=== PATIENT | female | born 1960 | race Caucasian/White ===

== ENCOUNTER 2018-03-10 04:05 | Emergency (ER) | payer SELFPAY ==
[2018-03-10] MEDS ORDERED: Ondansetron PF 4 MG/2 ML Vial ONE ×2 (04:35→06:32)
[2018-03-10] MEDS ORDERED: Morphine 4 MG/ML VIAL ONE ×2 (04:35→06:29)
[2018-03-10 04:58] LABS: #Basophils 0.1 thou/uL (0.0-0.2); #Eosinphils 0.1 thou/uL (0.0-0.7); #Lymphocytes 1.7 thou/uL (1.20-3.40); #Monocytes 0.8 thou/uL (0.11-0.59); #Neutrophils 8.2 thou/uL (1.40-6.50); %Basophils 0.7 % (0.0-1.0); %Eosinophils 1.1 % (0.0-10.0); %Lymphocytes 15.7 % (21.0-51.0); %Monocytes 7.2 % (0.0-10.0); %Neutrophils 75.4 % (42.0-75.0); Hemoglobin 14.8 g/dL (12.0-16.0); Mean Corpuscular Hemoglobin 29.6 pg (27.0-31.0); Mean Corpuscular Volume 89.6 fL (78.0-98.0); Mean Platelet Volume 8.3 fL (7.4-10.4); Platelet Count 297 thou/uL (130-400); RBC Distribution Width 12.2 % (11.5-14.5); Red Blood Cell (RBC) Count 4.99 mill/uL (4.20-5.40); White Blood Cell (WBC) Count 10.9 thou/uL (4.8-10.8)
[2018-03-10] MEDS ORDERED: Ketorolac Tromethamine 30 MG/ML VIAL ONE (05:13)
[2018-03-10 05:20] LABS: BHCG - Serum Negative (NEGATIVE); Pregs Control Background? CLEAR/WHITE (CLR/WHITE); Pregs Control Bar Appear? YES (CONTROL BAR)
[2018-03-10 05:22] LABS: ALT (SGPT) 12 U/L (8-55); AST (SGOT) 14 U/L (5-34); Albumin 4.2 g/dL (3.5-5.0); Alkaline Phosphatase 97 U/L (40-150); Anion Gap 11 mmol/L (10-20); BUN (Urea Nitrogen) 17 mg/dL (9.8-20.1); Bilirubin, Total 0.6 mg/dL (0.2-1.2); Calc. Creatinine Clearance 0 mL/min (70-130); Calcium 9.2 mg/dL (7.8-10.44); Carbon Dioxide 26 mmol/L (22-29); Chloride 104 mmol/L (98-107); Estimated GFR-MDRD 65; Globulin 3.9 g/dL (2.4-3.5); Glucose 114 mg/dL (70-105); Lipase 28 U/L (8-78); Potassium 3.8 mmol/L (3.5-5.1); Protein, Total 8.1 g/dL (6.0-8.3); Sodium 137 mmol/L (136-145)
[2018-03-10 06:33] LABS: Bilirubin Negative (Negative); Blood, Urine Negative (Negative); Clarity CLEAR (Clear); Glucose, Urine (Dipstick) Negative (Negative); Leukocyte Negative (Negative); Nitrite Negative (Negative); Protein, Urine (Dipstick) Negative (Neg-Trace); Urobilinogen 0.2 mg/dL (0.2-1.0); pH, Urine 7.5 (5.0-9.0)
[2018-03-10 06:43] LABS: Specific Gravity, Urine Greater than 1.060 (1.002-1.036)
--- NOTE | 2018-03-10 08:03 | CT ---
PRELIMINARY REPORT/[facility]/EMERGENTY AFTER-HOURS PROCEDURE CT Abdomen and Pelvis With Intravenous Contrast EXAM DATE/TIME: 03/10/2018 4:55 AM CLINICAL HISTORY: 57 years old, female; Pain; Abdominal pain; Localized; Lower; Prior surgery; Patient HX: Er 3; Abdomi nal pain, tender, to the left lower quadrant, to the right lower quadrant, associated with nausea. Madsen rgical history of tubal ligation. TECHNIQUE: Axial computed tomography images of the abdomen and pelvis with intravenous contrast. Coronal reformatted images were created and reviewed. COMPARISON: No relevant prior studies available. FINDINGS: Lower thorax: There is a 3 mm RIGHT lower lobe pulmonary nodule. There is a 5 mm LEFT lower lobe subp leural nodule. There is a 3 mm LEFT lower lobe pulmonary nodule. ABDOMEN: Liver: There are no focal liver lesions identified. Gallbladder and bile ducts: The gallbladder is normal. There is no evidence of biliary ductal dilatio n. Pancreas: The pancreas appears normal. No ductal dilatation. Spleen: The spleen is normal. Adrenals: The adrenal glands are normal. Kidneys and ureters: The kidneys appear normal. No hydronephrosis. Stomach and bowel: The stomach is normal. The duodenum is unremarkable. Moderate diverticulosis is pr esent in the sigmoid and descending colon. Appendix: A normal appendix is identified. PELVIS: Bladder: The bladder is normal. Reproductive: The uterus is normal. There is a LEFT ovarian 4.8 cm cyst, incompletely evaluated with CT. ABDOMEN and PELVIS: Intraperitoneal space: There is a small amount of free pelvic fluid present. Bones/joints: No acute fracture. No dislocation. Soft tissues: There is a nonspecific RIGHT upper quadrant anterior subcutaneous soft tissue nodule me asuring 13 mm. Vasculature: The vasculature demonstrates diffuse mild atherosclerotic calcification. Lymph nodes: Normal. No enlarged lymph nodes. IMPRESSION: 1. There is a LEFT ovarian 4.8 cm cyst, incompletely evaluated with CT. Pelvic ultrasound is advised for further characterization. 2. Numerous pulmonary nodules measuring up to 5 mm.For low risk patients, no routine follow-up is nee ded. For high risk patients, optional CT at 12 months is recommended. Thank you for allowing us to participate in the care of your patient. Dictated and Authenticated by: Antoni Cortez MD 03/10/2018 5:38 AM Central Time ([place] & [place]) FINAL REPORT CT ABDOMEN WITH CONTRAST CT PELVIS WITH CONTRAST: Date: 03/10/18 HISTORY: Pain. Left lower quadrant pain. Right lower quadrant pain. Tenderness. FINDINGS/IMPRESSION: This report is in agreement with the preliminary report by [facility]. There is a probable left ovarian cys t. Cyst is somewhat atypical for a patient of this age. Nonemergent [employer]EMAN consultation is recommended. There are nonspecific nodules in the right lower lobe. Based on risk stratification, CT can be perfor med in 12 months. Not reported on the preliminary report by [facility] is a soft tissue density mass in the right lower quadr ant, which is just superficial to the rectus muscles, measuring 1.2 x 2.0 cm. Evaluation is incomplet e. Targeted ultrasound is recommended. CODE T. POS: [place]
--- NOTE | 2018-03-10 09:46 | ULT ---
PELVIC ULTRASOUND: Date: 03/10/18 HISTORY: Left ovarian cyst noted on recent CT. COMPARISON: None. TECHNIQUE: Transabdominal imaging of the pelvis is performed. Ovaries are interrogated with Carter scale, color fl ow, Doppler imaging, and spectral waveform analysis. FINDINGS: Uterus is identified, without myometrial masses. Uterus measures 7.1 x 3.4 x 5.2 cm. Limited evaluati on of the endometrium which appears to be 0.5 cm in diameter. Right ovary has a normal echotexture, measuring 2.3 x 1.7 x 2.0 cm. Anechoic focus in the left ovary measuring 4.1 x 5.9 x 2.9 cm. Overall, left ovary measures 4.6 x 6.0 x 4.2 cm. No free fluid. OVARIAN DOPPLER: Vascular flow to both ovaries. IMPRESSION: Left ovarian cyst. Nonemergent AGENCY RECRUITER consultation is recommended. Results of the CT abdomen and pelvis were discussed with Dr. Avendaño. Specifically, the soft tissue mass in the right upper quadrant subcutaneous soft tissues was discussed 03/10/2018 at 9:29 a.m. CODE CR POS: [place]
[2018-03-10] MEDS ORDERED: Iopamidol 370 76% 100 ML VIAL ONE (13:37)
== END 2018-03-10 09:48 | disposition home or self-care (01) ==
LOC: ERS 04:05
DX: N83.202 Unspecified ovarian cyst, left side (principal); R91.1 Solitary pulmonary nodule; Z71.6 Tobacco abuse counseling; E03.9 Hypothyroidism, unspecified; I10 Essential (primary) hypertension; F41.9 Anxiety disorder, unspecified; F17.210 Nicotine dependence, cigarettes, uncomplicated
CPT/HCPCS: 74177; 76856; 80053; 81003; 83690; 84703; 85025; 93976; 96374; 96375; 96376; 99406; J1885; J2270; J2405

== ENCOUNTER 2019-11-10 15:31 | Outpatient (CLI) | payer BC ==
--- NOTE | 2019-11-10 15:57 | MMO ---
Bilateral MAMMO Bilat Screen [facility]. CLINICAL HISTORY: Patient is 59 years old and is seen for screening. The patient has no family history of breast cancer. The patient has no personal history of cancer. VIEWS: The views performed were: bilateral craniocaudal with tomosynthesis and bilateral mediolateral oblique with tomosynthesis. FILMS COMPARED: The present examination has been compared to prior imaging studies performed at [facility] on 04/12/2015, 04/30/2016, 05/01/2017 and 07/29/2018. This study has been interpreted with the assistance of computer-aided detection. MAMMOGRAM FINDINGS: There are scattered fibroglandular densities. Finding 1: There are stable benign appearing calcifications seen in both breasts. Finding 2: There are stable masses seen in both breasts. There are no suspicious masses, suspicious calcifications, or new areas of architectural distortion. IMPRESSION: THERE IS NO MAMMOGRAPHIC EVIDENCE OF MALIGNANCY. A ROUTINE FOLLOW-UP MAMMOGRAM IN 1 YEAR IS RECOMMENDED. THE RESULTS OF THIS EXAM WERE SENT TO THE PATIENT. ACR BI-RADS Category 2 - Benign finding MAMMOGRAPHY NOTE: 1. A negative mammogram report should not delay a biopsy if a dominant of clinically suspicious mass is present. 2. Approximately 10% to 15% of breast cancers are not detected by mammography. 3. Adenosis and dense breasts may obscure an underlying neoplasm. Reported by: CICI HALE MD Electonically Signed: [id number]
== END 2019-11-10 15:32 | disposition home or self-care (01) ==
LOC: BICMAMMO 15:31
PROVIDERS: ATTEND Physician Assistant
DX: Z12.31 Encounter for screening mammogram for malignant neoplasm of breast (principal)
CPT/HCPCS: 77063; 77067

== ENCOUNTER 2020-02-16 19:30 | Outpatient (CLI) | payer BC | END 2020-02-16 19:31 | disposition home or self-care (01) | LOC: SLEEPLAB 19:30 | PROVIDERS: ATTEND Physician Assistant | DX: G47.33 Obstructive sleep apnea (adult) (pediatric) (principal); R53.83 Other fatigue; E66.9 Obesity, unspecified; R06.83 Snoring; F41.8 Other specified anxiety disorders; I10 Essential (primary) hypertension | CPT/HCPCS: 95811 ==

== ENCOUNTER 2020-08-08 03:42 | Emergency (ER) | payer BC ==
[2020-08-08] MEDS ORDERED: Morphine 4 MG/ML VIAL ONE ×2 (04:06→05:28)
[2020-08-08] MEDS ORDERED: Ketorolac Tromethamine 30 MG/ML VIAL ONE (04:06)
[2020-08-08 04:26] LABS: #Basophils 0.1 thou/uL (0.0-0.2); #Eosinphils 0.2 thou/uL (0.0-0.7); #Lymphocytes 2.3 thou/uL (1.20-3.40); #Monocytes 0.5 thou/uL (0.11-0.59); %Eosinophils 1.9 % (0.0-10.0); %Lymphocytes 28.5 % (21.0-51.0); %Monocytes 6.7 % (0.0-10.0); %Neutrophils 61.9 % (42.0-75.0); Hemoglobin 13.5 g/dL (12.0-16.0); Mean Corpuscular HGB CONC 33.3 g/dL (32.0-36.0); Mean Corpuscular Hemoglobin 30.2 pg (27.0-31.0); Mean Corpuscular Volume 90.6 fL (78.0-98.0); Mean Platelet Volume 8.5 fL (7.4-10.4); Platelet Count 260 thou/uL (130-400); Red Blood Cell (RBC) Count 4.49 mill/uL (4.20-5.40); White Blood Cell (WBC) Count 8.1 thou/uL (4.8-10.8)
[2020-08-08 04:28] LABS: Bacteria/HPF None Seen HPF (None Seen); Bilirubin Negative (Negative); Blood, Urine 1+ (Negative); Clarity Clear (Clear); Glucose, Urine (Dipstick) Normal (Negative); Ketone, Urine Negative (Negative); Leukocyte Negative Leu/uL (Negative); Nitrite Negative (Negative); Protein, Urine (Dipstick) Negative (Neg-Trace); Specific Gravity, Urine 1.023 (1.002-1.036); Urobilinogen Normal mg/dL (Less than 2); WBC/HPF 0-3 HPF (0-3)
[2020-08-08 04:52] LABS: Albumin 3.8 g/dL (3.5-5.0); Anion Gap 12 mmol/L (10-20); BUN (Urea Nitrogen) 14 mg/dL (9.8-20.1); Bilirubin, Total 0.5 mg/dL (0.2-1.2); Calc. Creatinine Clearance 0 mL/min (70-130); Calcium 8.7 mg/dL (7.8-10.44); Carbon Dioxide 25 mmol/L (22-29); Chloride 105 mmol/L (98-107); Glucose 96 mg/dL (70-105); Potassium 3.8 mmol/L (3.5-5.1); Protein, Total 7.2 g/dL (6.0-8.3); Sodium 138 mmol/L (136-145)
[2020-08-08 04:53] LABS: ALT (SGPT) 14 U/L (8-55); AST (SGOT) 16 U/L (5-34); Alkaline Phosphatase 75 U/L (40-110); Globulin 3.4 g/dL (2.4-3.5); Lipase 24 U/L (8-78)
[2020-08-08] MEDS ORDERED: Labetalol HCl 100 MG/20 ML VIAL ONE (05:28)
[2020-08-08] MEDS ORDERED: hydrALAZINE 20 MG/ML VIAL ONE (05:37)
[2020-08-08] MEDS ORDERED: Iopamidol 370 76% 100 ML VIAL ONE (09:34)
== END 2020-08-08 08:14 | disposition home or self-care (01) ==
LOC: ERS 03:42
DX: N83.202 Unspecified ovarian cyst, left side (principal); E03.9 Hypothyroidism, unspecified; I10 Essential (primary) hypertension; Z79.899 Other long term (current) drug therapy; Z87.891 Personal history of nicotine dependence
CPT/HCPCS: 74177; 76856; 80053; 81003; 81015; 83690; 85025; 96374; 96375; 96376; J0360; J1885; J2270; Q9967

== ENCOUNTER 2020-12-22 10:47 | Outpatient (CLI) | payer BC | END 2020-12-22 10:48 | disposition home or self-care (01) | LOC: BICULT 10:47 | PROVIDERS: ATTEND Family Medicine | DX: R03.0 Elevated blood-pressure reading, without diagnosis of hypertension (principal) | CPT/HCPCS: 76770 ==

== ENCOUNTER 2022-01-18 10:41 | Outpatient (CLI) | payer BC | END 2022-01-18 10:42 | disposition home or self-care (01) | LOC: BICMAMMO 10:41 | PROVIDERS: ATTEND Physician Assistant | DX: Z12.31 Encounter for screening mammogram for malignant neoplasm of breast (principal) | CPT/HCPCS: 77063; 77067 ==

== ENCOUNTER 2022-12-17 10:56 | Outpatient (CLI) | payer BC | END 2022-12-17 10:57 | disposition home or self-care (01) | LOC: BICRAD 10:56 | PROVIDERS: ATTEND Family Medicine | DX: M25.531 Pain in right wrist (principal) ==